=== PATIENT | female | born 2005 | race Caucasian/White ===

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

== ENCOUNTER 2024-04-13 22:09 | Emergency (ER) | payer OTHER ==
[~2024-04-13] VITALS: Ht 165.1 cm; Wt 66.2 kg
[2024-04-13] MEDS ORDERED: FLUO10 PO (22:46)
[2024-04-13] MEDS ORDERED: TIZANIDINE HCL213 PO (22:46)
[2024-04-13] MEDS ORDERED: Ketorolac Tromethamine 30mg Vial IV ONE (23:05)
[2024-04-13] MEDS ORDERED: NS 1,000 ML IV SCH (23:05)
[2024-04-13] MEDS ORDERED: Metoclopramide HCl 5MG / ML 2ML Vial IV ONE (23:05)
[2024-04-13] MEDS ORDERED: DiphenhydrAMINE HCl 50 MG/ML 1ML Vial IV ONE (23:05)
[2024-04-14] MEDS ORDERED: METO10 PO (01:10)
[2024-04-14 01:22] VITALS: BP 135/76
== END 2024-04-14 01:25 | disposition home or self-care (01) ==
LOC: ER 22:09
DX: G43.B0 Ophthalmoplegic migraine, not intractable (principal); Z79.899 Other long term (current) drug therapy
CPT/HCPCS: 96374; 96375; 99283-25; J1200; J1885; J2765; J7030